=== PATIENT | female | born 1965 ===

== ENCOUNTER 2021-12-08 17:23 | Emergency (ER) | payer BC ==
[2021-12-08] MEDS ORDERED: Iopamidol 612 MG/ML 50 ML SDV IV ONE (17:24)
[2021-12-08] MEDS ORDERED: Iopamidol 612 MG/ML 100 ML Bottle IV ONE (17:24)
[2021-12-08] MEDS ORDERED: Sodium Chloride 0.9% 1,000 ML IV ONE (19:50)
[2021-12-08 20:34] LABS: ESTIMATED GFR 103 mL/min (>60)
[2021-12-08] MEDS ORDERED: Piperacillin/Tazobactam 4.5 GM in Sodium Chloride 0.9% 100 ML IV ONE (21:00)
[2021-12-08] MEDS ORDERED: VANCOmycin 1.75 GM/350 ML 1.75 GM in Premix Bag 1 BAG IV ONE (23:00)
[2021-12-13] MEDS ORDERED: Iopamidol 612 MG/ML 50 ML SDV IVPUSH ONE (14:22)
[2021-12-13] MEDS ORDERED: Iopamidol 612 MG/ML 100 ML Bottle IVPUSH ONE (14:22)
== END 2021-12-09 15:00 ==
LOC: JD.ED 17:23
DX: T81.49XA Infection following a procedure, other surgical site, initial encounter (principal); L02.211 Cutaneous abscess of abdominal wall; Z98.890 Other specified postprocedural states
CPT/HCPCS: 36415; 71260; 71260-26; 74177; 74177-26; 80053; 81001; 83605; 83690; 85025; 85652; 87040; 87154; 96361; 96365; 96366; 96367; 99285; J2543; J3370; J7030; Q9967; U0002